=== PATIENT | male | born 1990 | race Caucasian/White ===

== ENCOUNTER 2021-10-31 12:27 | Emergency (ER) | payer SELFPAY ==
[~2021-10-31] VITALS: Ht 182 cm; Wt 77.0 kg
--- NOTE | 2021-10-31 14:23 | ED Upper Extremity ---
General Chief Complaint: Upper Extremity Stated Complaint: L SHOULDER PAIN Nursing Triage Note: Pt c/o left shoulder pain after trying to move a mattress Source: patient, spouse Exam Limitations: no limitations (BHAVANI DOMINGUEZ) History of Present Illness Date Seen by Provider: Oct 31, 2021 Time Seen by Provider: 14:20 Initial Comments Patient was attempting to shove a kingsized member from the mattress into his car when he felt a sharp pain in his left shoulder. Since then he has had pain with inspiration and movement. He has not attempted any therapy prior to arrival. Pain is currently a sharp 6 out of 10 but goes up to a 10 out of 10 with range of motion. Onset: other (3 days) Severity: moderate Pain/Injury Location: left shoulder (BHAVANI DOMINGUEZ) Allergies and Home Medications Patient Home Medication List Home Medication List Reviewed: Yes (BHAVANI DOMINGUEZ) Diclofenac Sodium (Diclofenac Sodium) 75 Mg Tablet.dr, 75 MG PO BID Prescribed by: Elvis Dominguez on 10/31/21 1525 Methocarbamol (Methocarbamol) 750 Mg Tablet, 750 MG PO Q6-8HR Prescribed by: Elvis Dominguez on 10/31/21 1525 Review of Systems Constitutional: no symptoms reported EENTM: no symptoms reported Respiratory: no symptoms reported Cardiovascular: chest pain (left upper chest wall pain) Genitourinary: no symptoms reported Musculoskeletal: other (left shoulder pain) Skin: no symptoms reported (BHAVANI DOMINGUEZ) Past Pdddfoh-Ajtfan-Eafigu Hx Patient Social History Tobacco Use?: No (BHAVANI DOMINGUEZ) Physical Exam Vital Signs Vital Signs - First Documented 10/31/21 13:41 Temp 36.2 Pulse 69 Resp 18 B/P (MAP) 117/70 (86) Pulse Ox 98 O2 Delivery Room Air (AGUSTINA DODGE MD) Vital Signs Capillary Refill : Greater Than 3 Seconds (BHAVANI DOMINGUEZ) Height, Weight, BMI Height: '" Weight: lbs. oz. kg; 23.00 BMI Method: General Appearance: WD/WN, no apparent distress HEENT: PERRL/EOMI Neck: full range of motion Cardiovascular: regular rate, rhythm, no edema, no gallop Respiratory: lungs clear, normal breath sounds, other (ttp left upper anterior and posterior chest wall. No crepitus. ) Gastrointestinal: normal bowel sounds, non tender Back: normal inspection Shoulder: normal inspection, bone tenderness (ttp left lateral shoulder); No deformity; limited ROM Elbow/Forearm: normal inspection, non-tender, normal ROM Wrist: Yes normal inspection, Yes non-tender, Yes normal ROM Neurologic/Psychiatric: check and transfer beader II-XII nml as tested, no motor/sensory deficits, oriented x 3 Skin: normal color (BHAVANI DOMINGUEZ) Progress/Results/Core Measures Results/Orders Vital Signs/I&O 10/31/21 10/31/21 13:41 15:35 Temp 36.2 36.2 Pulse 69 69 Resp 18 18 B/P (MAP) 117/70 (86) 117/70 Pulse Ox 98 98 O2 Delivery Room Air Room Air (AGUSTINA DODGE MD) Blood Pressure Mean: 86 Departure Communication (PCP) No evidence/suspicion of fx, dislocation, vascular injury, pneumothorax, hemot horax or other emergent condition. Patient treated symptomatically and will follow up with PCP. (BHAVANI DOMINGUEZ) Impression Primary Impression: Internal derangement of left shoulder Disposition: HOME, SELF-CARE Condition: Stable Departure-Patient Inst. Decision time for Depature: 15:23 (BHAVANI DOMINGUEZ) Referrals: [facility],LOCAL PHYSICIAN (PCP) Primary Care Physician Patient Instructions: Muscle Strain (DC) Add. Discharge Instructions: Please follow up with primary care as we discussed. All discharge instructions reviewed with patient and/or family. Voiced understanding. Scripts Methocarbamol (Methocarbamol) 750 Mg Tablet 750 MG PO Q6-8HR for Back Pain, #20 TAB Prov: BHAVANI DOMINGUEZ 10/31/21 Diclofenac Sodium (Diclofenac Sodium) 75 Mg Tablet.dr 75 MG PO BID for 7 Days, #14 TAB Prov: BHAVANI DOMINGUEZ 10/31/21 Work/School Note: Work Release Form Date Seen in the Emergency Department: Oct 31, 2021 Return to Work: Nov 03, 2021 Restrictions: No Restrictions ATTENDING PHYSICIAN NOTE: I was physically present as attending physician in the emergency department during the care of this patient, but I was not directly involved in the decision making or delivery of care for this patient. (AGUSTINA DODGE MD) BHAVANI DOMINGUEZ Oct 31, 2021 14:23 AGUSTINA DODGE MD Oct 31, 2021 21:09
--- NOTE | 2021-10-31 14:27 | Diagnostic Imaging Report ---
INDICATION: Left chest injury with pain. PA and lateral views of the chest are obtained. COMPARISON: No previous study is available for comparison at this time. FINDINGS: Heart size and pulmonary vasculature are within normal limits, and the lungs are clear, bilaterally. IMPRESSION: Unremarkable chest. Dictated by: Dictated on workstation # [id number]
[2021-10-31] MEDS ORDERED: METH-732 PO (15:25)
[2021-10-31] MEDS ORDERED: DICL75TA2 PO (15:25)
[2021-10-31 15:35] VITALS: BP 117/70
== END 2021-10-31 15:34 | disposition home or self-care (01) ==
LOC: ER 12:30
DX: M24.812 Other specific joint derangements of left shoulder, not elsewhere classified (principal); X50.0XXA Overexertion from strenuous movement or load, initial encounter
CPT/HCPCS: 71046